=== PATIENT | male | born 1980 | race Caucasian/White ===

== ENCOUNTER 2017-03-09 19:59 | Emergency (ER) | payer SELFPAY ==
[2017-03-09] MEDS ORDERED: Ketorolac Tromethamine 30 MG/ML VIAL ONE (20:53)
--- NOTE | 2017-03-09 22:06 | RAD ---
RIGHT HAND THREE VIEWS: History: Injury. Punched a wall. Comparison: None. FINDINGS: There is soft tissue swelling, predominately on the dorsum of the hand. There is angulated fracture involving the distal four metacarpal. No additional fractures. Joint spaces are preserved. IMPRESSION: 1. Dorsal soft tissue swelling. 2. Fourth metacarpal fracture. POS: [facility]
== END 2017-03-09 21:35 | disposition home or self-care (01) ==
LOC: ERS 19:59
DX: S62.334A Displaced fracture of neck of fourth metacarpal bone, right hand, initial encounter for closed fracture (principal); F32.9 Major depressive disorder, single episode, unspecified; F17.210 Nicotine dependence, cigarettes, uncomplicated; W22.01XA Walked into wall, initial encounter
CPT/HCPCS: 29125; 96372; J1885

== ENCOUNTER 2017-04-10 19:47 | Emergency (ER) | payer SELFPAY ==
[2017-04-10] MEDS ORDERED: Lidocaine 1% w/Epinephrine 1:200K 30 ML VIAL ONE (20:36)
[2017-04-10] MEDS ORDERED: Acetaminophen 500 MG TAB ONE (21:37)
[2017-04-10] MEDS ORDERED: Adacel (T-DAP) 0.5 ML VIAL ONE (21:37)
--- NOTE | 2017-04-12 15:26 | EKG ---
Test Reason : Blood Pressure : / mmHG Vent. Rate : 069 BPM Atrial Rate : 069 BPM P-R Int : 124 ms QRS Dur : 084 ms QT Int : 354 ms P-R-T Axes : 051 036 027 degrees QTc Int : 379 ms Poor data quality, interpretation may be adversely affected Sinus rhythm with Fusion complexes No STEMI Otherwise normal ECG Confirmed by LAMIN CLINTON M.D. ([id number]), international editorial producer SARAY JENNINGS ([id number] on 04/12/2017 3:26:05 PM Referred By: Confirmed By:LAMIN CLINTON M.D.
== END 2017-04-10 21:27 ==
LOC: ERS 19:47
DX: S01.81XA Laceration without foreign body of other part of head, initial encounter (principal); R55 Syncope and collapse; Z23 Encounter for immunization; I49.9 Cardiac arrhythmia, unspecified; F31.9 Bipolar disorder, unspecified; F17.210 Nicotine dependence, cigarettes, uncomplicated; W22.8XXA Striking against or struck by other objects, initial encounter
CPT/HCPCS: 36416; 90471; 90715; 93005

== ENCOUNTER 2019-02-24 15:08 | Emergency (ER) | payer SELFPAY ==
[2019-02-24 15:47] LABS: #Eosinphils 0.4 thou/uL (0.0-0.7); #Lymphocytes 1.6 thou/uL (1.20-3.40); #Monocytes 0.8 thou/uL (0.11-0.59); #Neutrophils 7.5 thou/uL (1.40-6.50); %Basophils 0.4 % (0.0-1.0); %Eosinophils 3.7 % (0.0-10.0); %Lymphocytes 15.5 % (21.0-51.0); %Monocytes 7.4 % (0.0-10.0); Hemoglobin 13.8 g/dL (14.0-18.0); Mean Corpuscular HGB CONC 32.7 g/dL (32.0-36.0); Mean Corpuscular Hemoglobin 30.8 pg (27.0-31.0); Mean Corpuscular Volume 94.3 fL (78.0-98.0); Mean Platelet Volume 7.4 fL (7.4-10.4); Platelet Count 240 thou/uL (130-400); RBC Distribution Width 12.8 % (11.5-14.5); Red Blood Cell (RBC) Count 4.49 mill/uL (4.70-6.10); White Blood Cell (WBC) Count 10.3 thou/uL (4.8-10.8)
--- NOTE | 2019-02-24 15:59 | CT ---
CT Neck Soft Tissue W Con History: Pain Comparison: None. Findings: Globes are intact. No retrobulbar or fluid. In the right nasopharyngeal tonsil is a peripherally enhancing collection which is multiseptated. The re is edema along the right larynx. This collection measures approximately 2 cm in AP dimension by 1.7 cm in transverse with a craniocaudal length of 2.8 cm. There is prevertebral edema to the level o f C5 without mediastinal extension. Lung apices are clear. Circumferential disc bulge C5/C6 causes mild effacement of the ventral CSF spa ce. Thyroid is unremarkable. Reactive right cervical adenopathy. Impression: Right nasopharyngeal abscess as described with reactive right cervical adenopathy as well as right pharyngeal soft tissue edema. Prevertebral fluid extends caudally to the level of C5 without mediastinal extension.
[2019-02-24 16:11] LABS: ALT (SGPT) 24 U/L (8-55); AST (SGOT) 18 U/L (5-34); Albumin 4.2 g/dL (3.5-5.0); Alkaline Phosphatase 101 U/L (40-150); Anion Gap 9 mmol/L (10-20); BUN (Urea Nitrogen) 17 mg/dL (8.9-20.6); Bilirubin, Total 0.4 mg/dL (0.2-1.2); Calc. Creatinine Clearance 0 mL/min (70-130); Calcium 9.5 mg/dL (7.8-10.44); Carbon Dioxide 27 mmol/L (22-29); Chloride 104 mmol/L (98-107); Estimated GFR-MDRD 87; Globulin 2.9 g/dL (2.4-3.5); Glucose 131 mg/dL (70-105); Potassium 3.9 mmol/L (3.5-5.1); Protein, Total 7.1 g/dL (6.0-8.3); Sodium 136 mmol/L (136-145)
[2019-02-24] MEDS ORDERED: Morphine 4 MG/ML VIAL ONE (16:28)
[2019-02-24] MEDS ORDERED: Clindamycin/D5W 900 mg/50 ml Premix Bag ONE (17:06)
[2019-02-24] MEDS ORDERED: Dexamethasone 4 mg/ml Vial ONE (17:17)
== END 2019-02-24 17:45 | disposition home or self-care (01) ==
LOC: ERS 15:08
DX: J39.1 Other abscess of pharynx (principal); I49.9 Cardiac arrhythmia, unspecified; F31.9 Bipolar disorder, unspecified; F17.210 Nicotine dependence, cigarettes, uncomplicated
CPT/HCPCS: 70491; 80053; 83605; 85025; 87081; 87430; 96365; 96375; J1100; J2270; J3490